=== PATIENT | male | born 1960 | race Caucasian/White ===

== ENCOUNTER 2017-10-31 11:09 | Inpatient (IN) | payer OTHER ==
[~2017-10-31] VITALS: Ht 162.6 cm; Wt 94.2 kg
[~2017-10-31 11:09] MED LIST: ALEVE 220MG220 MG PO; CLEOCIN HC150 MG/CAP PO; FLAGYL 250250 MG/TAB PO; GAS-X80 MG PO; LEVAQUIN 750MG750 M1 PO; LORTAB 7.5/5001 TAB PO; PRILOSEC 20MG20 MG PO
[2017-10-31] MEDS ORDERED: MULTI VITAMINS1 TAB PO (11:22)
[2017-10-31] MEDS ORDERED: BACTRIM DS 8001 TAB PO (11:22)
[2017-10-31] MEDS ORDERED: CHLOR-TABS4 MG PO (11:23)
[2017-10-31 11:55] LABS: BASO % 0.2 % (0.0-2.0); EOS % 0.1 % (0-4.0); GRAN % 86.3 % (42.2-75.2); HEMATOCRIT 40.4 % (42.0-52.0); HEMOGLOBIN 13.9 g/dl (13.5-18.0); LYMPH # 0.7 (1.2-3.4); MEAN CELL VOLUME 93 fl (80.0-100.0); MEAN CORPUSCULAR HEMOGLOBIN 32 pg (27.0-31.0); MEAN CORPUSCULAR HGB CONC 34 g/dl (33.0-37.0); MEAN PLATELET VOLUME 8.9 fl (7.4-10.4); MONO # 1.5 (0.1-0.6); MONO % 8.4 % (1.7-9.3); PLATELET COUNT 283 K/mm3 (130-400); RED BLOOD COUNT 4.33 M/mm3 (4.20-5.60)
[2017-10-31 12:02] LABS: ALBUMIN 3.9 gm/dL (3.5-5.0); BILIRUBIN,TOTAL 1.1 mg/dL (0.0-1.0); CALCIUM 9.2 mg/dL (8.4-10.2); CREATININE, serum 0.89 mg/dL (0.66-1.25); TOTAL PROTEIN 8.3 gm/dL (6.4-8.2)
[2017-10-31 15:06] VITALS: BP 142/73; PULSE 112; TEMP 102.6
[2017-10-31 17:30] VITALS: TEMP 100.2
[2017-10-31 19:25] VITALS: BP 127/66; PULSE 114; TEMP 99.4
[2017-10-31 23:09] VITALS: BP 141/73; PULSE 112; TEMP 102
[2017-11-01 03:35] VITALS: BP 134/79; PULSE 86; TEMP 98.4
[2017-11-01 07:32] VITALS: BP 120/70; PULSE 84; TEMP 98.2
[2017-11-01 07:35] LABS: HEMATOCRIT 38.4 % (42.0-52.0); HEMOGLOBIN 12.7 g/dl (13.5-18.0); MEAN CELL VOLUME 97 fl (80.0-100.0); MEAN CORPUSCULAR HEMOGLOBIN 32 pg (27.0-31.0); MEAN CORPUSCULAR HGB CONC 33 g/dl (33.0-37.0); MEAN PLATELET VOLUME 8.9 fl (7.4-10.4); PLATELET COUNT 256 K/mm3 (130-400); RED BLOOD COUNT 3.98 M/mm3 (4.20-5.60); REDCELL DISTRIBUTION WIDTH-CV 13.1 % (11.5-14.5)
[2017-11-01 07:46] LABS: CALCIUM 8.7 mg/dL (8.4-10.2); CREATININE, serum 0.88 mg/dL (0.66-1.25); MAGNESIUM 2.1 mg/dL (1.6-2.3)
[2017-11-01 08:35] LABS: BAND 11 % (0-10); BASOPHIL 2 % (0-2); LYMPHOCYTE 7 % (20.0-51.0); NEUTROPHILS 70 % (42.0-75.2)
[2017-11-01 08:36] LABS: MICROCYTOSIS 1+; PLATELET ESTIMATE NORMAL (NORMAL)
[2017-11-01 11:13] VITALS: BP 120/73; PULSE 88; TEMP 99.5
[2017-11-01 16:00] VITALS: BP 127/82; PULSE 89; TEMP 100.5
[2017-11-01 20:17] VITALS: BP 142/76; PULSE 87; TEMP 98.5
[2017-11-01 23:31] VITALS: BP 150/86; PULSE 88; TEMP 98
[2017-11-02 04:39] VITALS: BP 157/83; PULSE 89; TEMP 98.7
[2017-11-02 07:15] LABS: BASO % 0.3 % (0.0-2.0); EOS # 0.1 (0.0-0.7); GRAN # 8.2 (1.4-6.5); GRAN % 74.6 % (42.2-75.2); HEMOGLOBIN 11.9 g/dl (13.5-18.0); LYMPH # 1.5 (1.2-3.4); LYMPH % 13.3 % (20.0-51.0); MEAN CELL VOLUME 93 fl (80.0-100.0); MEAN CORPUSCULAR HEMOGLOBIN 31 pg (27.0-31.0); MEAN CORPUSCULAR HGB CONC 33 g/dl (33.0-37.0); MONO # 1.1 (0.1-0.6); PLATELET COUNT 278 K/mm3 (130-400); RED BLOOD COUNT 3.83 M/mm3 (4.20-5.60)
[2017-11-02 07:17] LABS: HEMATOCRIT 35.7 % (42.0-52.0)
[2017-11-02 07:24] VITALS: BP 142/87; PULSE 78; TEMP 98.8
[2017-11-02] MEDS ORDERED: DOXYCYCLINE 10100 MG PO (09:09)
== END 2017-11-02 10:16 | disposition home or self-care (01) | DRG 395 ==
LOC: COL.ER 11:09 → MEDICAL 13:09
PROVIDERS: Emergency Medicine; Internal Medicine; Physician Assistant
DX: K61.1 Rectal abscess (principal); B95.61 Methicillin susceptible Staphylococcus aureus infection as the cause of diseases classified elsewhere
CPT/HCPCS: 99231-AI; 99239; J1650; J1956; J2405; J3010; J3370; J7030; J7040; J7050; Q9967

== ENCOUNTER → 2022-09-28 | Outpatient (CLI) | payer OTHER ==
[~2022-09-28] MED LIST changes: +BACTRIM DS 8001 TAB PO; +CHLOR-TABS4 MG PO; +DOXYCYCLINE 10100 MG PO; +MULTI VITAMINS1 TAB PO
== END ==
LOC: COL.RAD 13:39
DX: K43.2 Incisional hernia without obstruction or gangrene (principal); I70.0 Atherosclerosis of aorta; I70.8 Atherosclerosis of other arteries; K76.0 Fatty (change of) liver, not elsewhere classified; K80.20 Calculus of gallbladder without cholecystitis without obstruction